=== PATIENT | male | born 1990 | race American Indian/Alaskan Native ===

== ENCOUNTER 2019-04-09 09:20 | Emergency (ER) | payer OTHER ==
[2019-04-09 09:32] VITALS: BP 107/81
[2019-04-09] MEDS ORDERED: FLEXERIL PO ONE (09:51)
[2019-04-09] MEDS ORDERED: IBUPROFEN PO ONE (09:51)
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
== END 2019-04-09 10:31 | disposition home or self-care (01) ==
LOC: ED 09:20
DX: M54.2 Cervicalgia (principal); M54.5 Low back pain; V49.59XA Passenger injured in collision with other motor vehicles in traffic accident, initial encounter; Y93.89 Activity, other specified; Y92.488 Other paved roadways as the place of occurrence of the external cause; Y99.8 Other external cause status
CPT/HCPCS: 99282